=== PATIENT | female | born 1995 | race Caucasian/White ===

== ENCOUNTER → 2022-11-05 | Outpatient (CLI) | payer MEDICAID, SELFPAY ==
[2022-11-05 13:07] LABS: Hematocrit 32.3 % (37-47); Hemoglobin 10.5 g/dL (12.0-15.0); Mean Corp Hgb Conc 32.5 g/dL (32-36); Mean Corpuscular Hgb 30.8 pg (27.0-32.0); Mean Corpuscular Volume 94.7 fL (81-99); Mean Platelet Vol. 9.7 fl (6.2-12.0); Platelet Count 248 K/mm3 (150-450); RBC Distribution Width CV 13.8 % (11.6-14.6); RBC Distribution Width SD 47.7 fl (35.1-43.9); Red Blood Count 3.41 M/mm3 (4.2-5.4); White Blood Count 9.4 K/mm3 (4.4-11.0)
[2022-11-05 13:35] LABS: Syphilis Antibodies Non-reactive
== END | disposition home or self-care (01) ==
PROVIDERS: Visit Provider Student in an Organized Health Care Education/Training Program
DX: Z34.83 Encounter for supervision of other normal pregnancy, third trimester (principal)
CPT/HCPCS: 36415; 85027; 86780; 87081

== ENCOUNTER 2022-12-05 07:10 | Inpatient (IN) | payer MEDICAID, SELFPAY ==
[2022-12-05] VITALS (29 sets, daily range): BP systolic 115–126; BP diastolic 72–82; PULSE 76–115; TEMP 36.1–37.4; O2SAT 94–99; BMI 35.9
--- NOTE | 2022-12-05 08:47 | PCM.HP.BLA ---
History and Physical Date of Admission: 12/05/22 Chief complaint: Induction of labor at term History present illness: 27-year-old G1, P0 at 40 weeks and 5 days with SWETHA 11/30/2022 arrives for induction of labor at term. Denies headache, vision changes, chest pain, shortness of breath, nausea vomit, right upper quadrant pain. Patient states good movement. is complicated by Rh- Obstetric history: G1: Current Past medical history: None Medications: None Allergies: No known drug allergies Past surgical history: None Family history: Denies history DVT or PE Social history: Denies smoking, alcohol use, drug use Review of systems: Besides above pertinent positives a full review of systems was performed and found to be negative Physical exam: Vitals: Pending General: Normal-appearing no acute distress HEENT: Normocephalic/atraumatic no cervical adenopathy Cardiac/respiratory: No use of accessory muscles, nonlabored breathing Abdomen: Soft, nontender, gravid Extremities: No peripheral edema normal peripheral pulses Psych: Normal affect normal demeanor nonpressured speech Labs: Pending Assessment plan: 27 year-old G1, P0 at 40 weeks and 5 days for induction of labor at term Admit labor and delivery CEFM GBS negative Routine orders
[2022-12-05] MEDS: 0.9% Saline Lock 10 ML Syringe IV (09:15)
[2022-12-05 09:28] LABS: Absolute Lymphocyte Count 2.15 X10^3/uL (0.83-4.51); Absolute Neutrophil Count 7.2 X10^3/uL (2.0-7.7); Basophil# 0.04 X10^3/uL; Basophil% 0.4 % (0-1); Eosinophil# 0.12 X10^3/uL; Eosinophils% 1.2 % (0-5); Hematocrit 34.2 % (37-47); Hemoglobin 11.4 g/dL (12.0-15.0); Lymphocyte # 2.15 X10^3/ul (0.83-4.51); Lymphocyte % 20.7 % (19-41); Mean Corp Hgb Conc 33.3 g/dL (32-36); Mean Corpuscular Hgb 31.6 pg (27.0-32.0); Mean Corpuscular Volume 94.7 fL (81-99); Mean Platelet Vol. 9.4 fl (6.2-12.0); Monocyte% 7.7 % (0-10); NRBC Flagged by Analyzer 0 % (0-5); Neutrophil # 7.22 X10^3/uL (2.7-7.7); Neutrophil % 69.3 % (47-70); Platelet Count 249 K/mm3 (150-450); RBC Distribution Width CV 14.1 % (11.6-14.6); RBC Distribution Width SD 49.1 fl (35.1-43.9); Red Blood Count 3.61 M/mm3 (4.2-5.4); White Blood Count 10.4 K/mm3 (4.4-11.0)
[2022-12-05] MEDS: miSOPROStol 25 MCG TABLET VAGINAL ×4 (09:57→22:23)
[2022-12-05 09:58] LABS: Syphilis Antibodies Non-reactive
--- NOTE | 2022-12-05 19:37 | PCM.PN.OB ---
Subjective Subjective Resting comfortably in chair Objective Data Objective Data Vital Signs: Vital Signs Temp Pulse BP Pulse Ox 98.7 F 100 121/82 H 97 12/05/22 19:14 12/05/22 19:14 12/05/22 19:14 12/05/22 19:13 Weight: 184 lb 3.2 oz Body Mass Index (BMI) 35.9 Lab / Micro Data Result Diagrams: 12/05/22 09:15 Labs: Laboratory Results - last 24 hr 12/05/22 09:15: WBC 10.4, RBC 3.61 L, Hgb 11.4 L, Hct 34.2 L, MCV 94.7, MCH 31.6, MCHC 33.3, RDW Std Deviation 49.1 H, RDW Coeff of Amy 14.1, Plt Count 249, MPV 9.4, Immature Gran % (Auto) 0.700, Neut % (Auto) 69.3, Lymph % (Auto) 20.7, [place] % (Auto) 7.7, Eos % (Auto) 1.2, Baso % (Auto) 0.4, Absolute Neuts (auto) 7.2, Absolute Lymphs (auto) 2.15, Nucleated RBC % 0 12/05/22 09:15: Blood Type O NEGATIVE, Antibody Screen TNP 12/05/22 09:15: Syphilis Total Ab Non-reactive 12/05/22 09:15: Antibody Screen NEGATIVE Physical Exam Const alert, oriented x3, no apparent distress, average body habitus, healthy appearing and well nourished HEENT normocephalic and moist oral mucous membranes Eyes PERRL Neck full ROM Resp normal respiratory effort, no retractions and no use of accessory muscles Extremity normal to inspection and full ROM Psych mental status grossly normal, affect normal, speech normal and activity/motor behavior normal Assessment & Plan (1) : PLAN: Patient seen and examined. Resting comfortably in chair. We will continue Cytotec induction. Educated patient on Cytotec induction. Discussed future options such as Mays bulb and Pitocin, along with AROM. Patient states understanding all questions answered
[2022-12-05] MEDS: Lactated Ringers 1,000 ML 50 ML IV (20:30)
[2022-12-06] VITALS (49 sets, daily range): BP systolic 79–136; BP diastolic 47–77; PULSE 78–226; RESP 14; TEMP 36.7–37.4; O2SAT 80–100
[2022-12-06] MEDS: fentaNYL 100 MCG/2 ML Ampul IV (02:18)
[2022-12-06] MEDS: LACTATED RINGERS 500 ML 999 ML IV ×2 (03:24→06:05)
[2022-12-06] MEDS: Lactated Ringers 1,000 ML 200 ML IV ×2 (04:09→09:49)
[2022-12-06] MEDS: fentaNYL-bupivacaine (epidural) 100 ML BAG EPIDURAL ×2 (04:51→08:57)
[2022-12-06] MEDS: Oxytocin 15 Units/NS 250ml 15 UNITS/250 ML IV.SOLN 2 UNITS IV (05:50)
[2022-12-06 06:34] LABS: ROM Internal Control Test YES-OK TO RESULT pt. (Internal QC)
[2022-12-06 06:35] LABS: ROM Patient Test POSITIVE (Negative)
--- NOTE | 2022-12-06 07:53 | PCM.PN.OB ---
Subjective Subjective Patient now comfortable with epidural Objective Data Objective Data Vital Signs: Vital Signs Temp Pulse BP Pulse Ox 98.2 F 129 H 104/50 L 95 12/06/22 07:24 12/06/22 07:25 12/06/22 07:25 12/06/22 07:25 Weight: 184 lb 3.2 oz Body Mass Index (BMI) 35.9 Intake & Output: Intake and Output for Last 24 Hours 12/04/22 12/05/22 12/06/22 23:59 23:59 23:59 Intake Total 887.94 / 887.94 Balance 887.94 / 887.94 Lab / Micro Data Result Diagrams: 12/05/22 09:15 Labs: Laboratory Results - last 24 hr 12/05/22 09:15: WBC 10.4, RBC 3.61 L, Hgb 11.4 L, Hct 34.2 L, MCV 94.7, MCH 31.6, MCHC 33.3, RDW Std Deviation 49.1 H, RDW Coeff of Amy 14.1, Plt Count 249, MPV 9.4, Immature Gran % (Auto) 0.700, Neut % (Auto) 69.3, Lymph % (Auto) 20.7, [place] % (Auto) 7.7, Eos % (Auto) 1.2, Baso % (Auto) 0.4, Absolute Neuts (auto) 7.2, Absolute Lymphs (auto) 2.15, Nucleated RBC % 0 12/05/22 09:15: Blood Type O NEGATIVE, Antibody Screen TNP 12/05/22 09:15: Syphilis Total Ab Non-reactive 12/05/22 09:15: Antibody Screen NEGATIVE 12/06/22 05:57: Vag Amniotic Fld Detect POSITIVE H Physical Exam Const alert, oriented x3, no apparent distress, average body habitus, healthy appearing and well nourished HEENT normocephalic and moist oral mucous membranes Eyes PERRL Neck full ROM Resp normal respiratory effort, no retractions and no use of accessory muscles GI GI Narrative: Soft, nontender, gravid Narrative: Cervical exam: 4-5/80/-3. AROM for bag with clear fluid blood-tinged Psych mental status grossly normal, affect normal, speech normal and activity/motor behavior normal Assessment & Plan (1) : PLAN: Patient seen and examined. Per nursing SROM at 05 30 with ROM positive. Cervical exam as above AROM for bag for clear fluid blood-tinged. Status post Cytotec now started on Pitocin, will continue to titrate. Educated patient on findings and plan for today's induction. Patient states understanding, all questions answered
--- NOTE | 2022-12-06 13:50 | EX.PCM.OBRPT ---
Vaginal Delivery Findings Description of Procedure: Normal spontaneous vaginal delivery of viable male infant, vertex OA. Head and shoulders delivered with ease. Cord clamped and cut. Baby handed off to patient. Placenta delivered via cord traction and fundal massage intact. First-degree midline perineal laceration noted and repaired in typical fashion. IV Pitocin given per protocol. EBL 300 cc Apgars 8/9
[2022-12-06] MEDS: Oxytocin 15 Units/NS 250ml 15 UNITS/250 ML IV.SOLN 83 UNITS IV (14:10)
[2022-12-07] VITALS (9 sets, daily range): BP systolic 101–130; BP diastolic 53–81; PULSE 73–96; RESP 14–16; TEMP 36.4–37.3; O2SAT 96–98
[2022-12-07] MEDS: Acetaminophen 500 MG Tablet 1000 MG PO ×2 (08:10→21:38)
--- NOTE | 2022-12-07 08:11 | PCM.PN.OB ---
Subjective Subjective No overnight complaints Objective Data Objective Data Vital Signs: Vital Signs Temp Pulse Resp BP Pulse Ox O2 Del Method 97.5 F L 73 14 101/53 L 96 Room Air 12/07/22 03:49 12/07/22 03:49 12/07/22 03:49 12/07/22 03:49 12/06/22 15:08 12/07/22 03:49 Oxygen Delivery Method Room Air Weight: 184 lb 3.2 oz Body Mass Index (BMI) 35.9 Intake & Output: Intake and Output for Last 24 Hours 12/05/22 12/06/22 12/07/22 23:59 23:59 23:59 Intake Total 4635.83 / 4635.83 Output Total 4450 / 4450 1200 / 1200 Balance 185.83 / 185.83 -1200 / -1200 Lab / Micro Data Result Diagrams: 12/05/22 09:15 Physical Exam Const alert, oriented x3, no apparent distress, average body habitus, healthy appearing and well nourished HEENT normocephalic and moist oral mucous membranes Eyes PERRL Neck full ROM Resp normal respiratory effort, no retractions and no use of accessory muscles GI GI Narrative: Soft, nontender, uterus firm and below umbilicus Extremity normal to inspection and full ROM Neuro moves all extremities and no focal motor deficits Psych mental status grossly normal, affect normal, speech normal and activity/motor behavior normal Assessment & Plan (1) Vaginal delivery: PLAN: day 1. Breast-feeding. Pain well controlled. Likely home tomorrow
[2022-12-07] MEDS: Ibuprofen 600 MG Tablet PO (15:12)
[2022-12-08 02:18] VITALS: BP 117/72; PULSE 87; O2SAT 96
[2022-12-08 02:26] VITALS: BP 117/52; PULSE 96; RESP 16; TEMP 36.4; O2SAT 96
[2022-12-08] MEDS: Acetaminophen 500 MG Tablet 1000 MG PO (08:15)
[2022-12-08 08:17] VITALS: BP 119/75; PULSE 86; RESP 16; TEMP 36.6; O2SAT 98
--- NOTE | 2022-12-08 09:30 | PCM.PN.OB ---
Subjective Subjective No overnight complaints Objective Data Objective Data Vital Signs: Vital Signs Temp Pulse Resp BP Pulse Ox O2 Del Method 97.9 F 86 16 119/75 98 Room Air 12/08/22 08:17 12/08/22 08:17 12/08/22 08:17 12/08/22 08:17 12/08/22 08:17 12/08/22 08:17 Oxygen Delivery Method Room Air Weight: 184 lb 3.2 oz Body Mass Index (BMI) 35.9 Intake & Output: Intake and Output for Last 24 Hours 12/06/22 12/07/22 12/08/22 23:59 23:59 23:59 Intake Total 4635.83 / 4635.83 Output Total 4450 / 4450 1200 / 1200 Balance 185.83 / 185.83 -1200 / -1200 Lab / Micro Data Result Diagrams: 12/05/22 09:15 Physical Exam Const alert, oriented x3, no apparent distress, average body habitus, healthy appearing and well nourished HEENT normocephalic and moist oral mucous membranes Eyes PERRL Neck full ROM Resp normal respiratory effort, no retractions and no use of accessory muscles Extremity normal to inspection and full ROM Neuro moves all extremities and no focal motor deficits Psych mental status grossly normal, affect normal, speech normal and activity/motor behavior normal Assessment & Plan (1) Vaginal delivery: PLAN: day 2. Breast-feeding. Pain well controlled. Okay to discharge home today
--- NOTE | 2022-12-08 09:31 | DS.PCM_ITS ---
Discharge Summary Date of Admission: 12/05/22 Date of Discharge: 12/08/22 Summary: Patient arrived on 12/05/22 for induction of labor at term. Subsequently delivered vaginally on 12/06/2022. Routine recovery and discharged home on 12/08/2022 Meaningful Use Info Meaningful Use Diagnoses (Choose all that apply): None applicable Discharge Plan Admission Admit Date/Time: 12/05/22 07:10 Primary Reason for Your Visit: Induction of labor Attending Provider: Dustin Monsalve Primary Care Provider: Nayeli PhysicianLindsey Primary Instructions Additional Instructions / Restrictions: Regular diet. Weightbearing as tolerated. Okay to shower. No intercourse for 4 to 6 weeks. Call if fevers, chills, chest pain, shortness of breath. Follow- up 4-6 weeks Discharge Orders/Prescriptions Referrals / Follow Up: Care Physician,Lindsey Primary [Primary Care Provider] - Disposition Disposition (needs filled in before D/C Order can be placed): Home, Self Care
== END 2022-12-08 11:40 | disposition home or self-care (01) | DRG 560 ==
PROVIDERS: Student in an Organized Health Care Education/Training Program; Admitting Provider Obstetrics & Gynecology; Visit Provider Obstetrics & Gynecology
DX: O70.0 First degree perineal laceration during delivery (principal); Z37.0 Single live birth; Z3A.40 40 weeks gestation of pregnancy
CPT/HCPCS: 59025; 59050; 84112; 85025; 86780; 86850; 86900; 86901; 99221; J7120; A4216; G0378